=== PATIENT | female | born 1940 | race Caucasian/White ===

== ENCOUNTER 2022-12-18 10:15 | Emergency (ER) | payer MEDICARE, BC ==
[~2022-12-18 10:15] MED LIST: Iopamidol 370 76% 200 ML VIAL ONE
[2022-12-18] MEDS ORDERED: Dicyclomine 20 MG/2 ML VIAL ONE (10:47)
[2022-12-18] MEDS ORDERED: Lactated Ringer's 1,000 ML ONE (10:47)
[2022-12-18] MEDS ORDERED: methylPREDNISolone Sod Succ/PF 125 MG/2 ML VIAL ONE (10:47)
[2022-12-18] MEDS ORDERED: Famotidine/PF 20 mg/2ml Vial ONE (10:47)
[2022-12-18] MEDS ORDERED: Ondansetron PF 4 MG/2 ML Vial ONE (10:47)
[2022-12-18] MEDS ORDERED: diphenhydrAMINE 50 MG/ML VIAL ONE (10:47)
[2022-12-18 11:01] LABS: #Basophils 0.1 thou/uL (0.0-0.2); #Eosinphils 0.2 thou/uL (0.0-0.7); #Lymphocytes 2.4 thou/uL (1.20-3.40); #Monocytes 0.8 thou/uL (0.11-0.59); #Neutrophils 7.4 thou/uL (1.40-6.50); %Basophils 0.6 % (0.0-1.0); %Eosinophils 1.4 % (0.0-10.0); %Lymphocytes 21.9 % (21.0-51.0); %Monocytes 7.8 % (0.0-10.0); %Neutrophils 68.3 % (42.0-75.0); Hematocrit 37.5 % (36.0-47.0); Hemoglobin 12.3 g/dL (12.0-16.0); Mean Corpuscular HGB CONC 32.9 g/dL (32.0-36.0); Mean Corpuscular Hemoglobin 32.7 pg (27.0-31.0); Mean Corpuscular Volume 99.3 fl (78.0-98.0); Mean Platelet Volume 7.5 fL (7.4-10.4); Platelet Count 246 10x3/uL (130-400); RBC Distribution Width 12.3 % (11.5-14.5); Red Blood Cell (RBC) Count 3.77 mill/uL (4.20-5.40); White Blood Cell (WBC) Count 10.8 10x3/uL (4.8-10.8)
[2022-12-18 11:11] LABS: PTT 30.9 sec (22.9-36.1); Prothrombin Time 13.7 sec (12.0-14.7)
[2022-12-18 11:21] LABS: ALT (SGPT) 53 U/L (8-55); AST (SGOT) 46 U/L (5-34); Albumin 3.8 g/dL (3.4-4.8); Alkaline Phosphatase 105 U/L (40-110); Anion Gap 18 mmol/L (10-20); BUN (Urea Nitrogen) 23 mg/dL (9.8-20.1); Bilirubin, Total 0.3 mg/dL (0.2-1.2); Calc. Creatinine Clearance 0 mL/min (70-130); Calcium 9.1 mg/dL (7.8-10.44); Carbon Dioxide 21 mmol/L (23-31); Chloride 100 mmol/L (98-107); Estimated GFR 35; Globulin 2.5 g/dL (2.4-3.5); Glucose 94 mg/dL (83-110); Lipase 33 U/L (8-78); Magnesium 2.2 mg/dL (1.6-2.6); Potassium 4.1 mmol/L (3.5-5.1); Protein, Total 6.3 g/dL (5.8-8.1); Sodium 135 mmol/L (136-145)
[2022-12-18] MEDS ORDERED: Morphine 4 MG/ML VIAL ONE (11:21)
[2022-12-18 13:08] LABS: Bilirubin Negative (Negative); Blood, Urine Trace (Negative); Clarity Clear (Clear); Glucose, Urine (Dipstick) Negative (Negative); Ketone, Urine Trace mg/dL (Negative); Leukocyte Negative (Negative); Nitrite Negative (Negative); Protein, Urine (Dipstick) Negative (Neg-Trace); Specific Gravity, Urine 1.015 (1.005-1.030); Urobilinogen 0.2 mg/dL (Less than 2)
[2022-12-18 13:21] LABS: RBC/HPF 0-3 HPF (0-3)
[2022-12-18 13:22] LABS: Bacteria/HPF Rare-Few HPF (None Seen); CAUTI Indications for Culture Pelvic or flank pain; Squamous Epithelial 0-3 HPF (0-3); Urine Culture Reflex No No; WBC/HPF 0-3 HPF (0-3)
[2022-12-18] MEDS ORDERED: Aspirin Chewable 81 MG TAB ONE (13:35)
[2022-12-18 14:06] LABS: Troponin I 0.023 ng/mL (< 0.028)
[2022-12-18 14:27] LABS: SARS-CoV-2 NAA Rapid Test Not Detected (NotDetected)
== END 2022-12-18 16:27 | disposition short-term general hospital (02) ==
LOC: MADERS 10:15
DX: N17.9 Acute kidney failure, unspecified (principal); K83.8 Other specified diseases of biliary tract; I10 Essential (primary) hypertension; Z87.891 Personal history of nicotine dependence; Z79.899 Other long term (current) drug therapy; Z79.82 Long term (current) use of aspirin; Z20.822 Contact with and (suspected) exposure to COVID-19
CPT/HCPCS: 0240U; 71045; 74177; 80053; 81001; 83605; 83690; 83735; 84484; 85025; 85610; 85730; 87040; 93005; 94760; 36415; 96361; 96372; 96374; 96375; J1200; J2270; J2405; J2930; J7120; S0028

== ENCOUNTER 2023-03-03 11:05 | Emergency (ER) | payer MEDICARE, BC ==
[2023-03-03] MEDS ORDERED: Dexamethasone 10 MG/ML VIAL ONE (12:09)
[2023-03-03] MEDS ORDERED: Ketorolac Tromethamine 10 MG TAB ONE (12:09)
== END 2023-03-03 12:35 | disposition home or self-care (01) ==
LOC: MADERS 11:05
DX: M10.9 Gout, unspecified (principal); I10 Essential (primary) hypertension; Z87.891 Personal history of nicotine dependence; Z79.899 Other long term (current) drug therapy
CPT/HCPCS: 96372; J1100

== ENCOUNTER 2023-08-29 21:57 | Emergency (ER) | payer MEDICARE, BC ==
[2023-08-30] MEDS ORDERED: Morphine 2 MG/ML VIAL ONE (00:14)
== END 2023-08-30 04:02 ==
LOC: MADERS 21:57
DX: S32.511A Fracture of superior rim of right pubis, initial encounter for closed fracture (principal); I10 Essential (primary) hypertension; Z87.891 Personal history of nicotine dependence; Z79.82 Long term (current) use of aspirin; W01.0XXA Fall on same level from slipping, tripping and stumbling without subsequent striking against object, initial encounter
CPT/HCPCS: 72170; 73502; G0390; J2272; 96374

== ENCOUNTER 2024-10-11 07:36 | Emergency (ER) | payer MEDICARE, BC ==
[2024-10-11] MEDS ORDERED: Ondansetron PF 4 MG/2 ML Vial ONE (07:59)
[2024-10-11] MEDS ORDERED: Ketorolac Tromethamine 30 MG (1 mL) VIAL ONE (08:22)
== END 2024-10-11 09:48 | disposition home or self-care (01) ==
LOC: MADERS 07:36
DX: S42.401A Unspecified fracture of lower end of right humerus, initial encounter for closed fracture (principal); I10 Essential (primary) hypertension; Z87.891 Personal history of nicotine dependence; Z79.82 Long term (current) use of aspirin; Z79.899 Other long term (current) drug therapy; W19.XXXA Unspecified fall, initial encounter
CPT/HCPCS: 73060; 73090; J1885; J2270; J2405; 96374; 96375